=== PATIENT | male | born 1960 | race African-American/Black ===

== ENCOUNTER 2016-08-07 17:43 | Emergency (ER) | payer OTHER ==
[~2016-08-07] VITALS: Ht 170.2 cm; Wt 63.0 kg
[2016-08-07] MEDS ORDERED: IBUPROFEN 600MG TABLET PO STA (18:00)
[2016-08-07 18:42] LABS: BASOPHILS % 0.7 % (0.0-2.0); HEMATOCRIT. 37.3 % (42.0-52.0); HEMOGLOBIN. 12.8 g/dL (14.0-18.0); LYMPHOCYTES % 35.6 % (20.0-50.0); MEAN CORPUSCULAR HEMOGLOBIN 33.9 pg (28.0-32.0); MEAN PLATELET VOLUME 8.5 fl (7.4-10.4); MONOCYTES % 6.3 % (2.0-8.0); NEUTROPHILS % 55.4 % (40.0-76.0); PLATELET 313 x1000/uL (130-400); RED BLOOD CELL COUNT 3.77 mill/uL (4.7-6.1); RED CELL DISTRIBUTION WIDTH 12.9 % (11.6-14.6)
[2016-08-07 18:48] LABS: PROTHROMBIN TIME 10.5 sec
[2016-08-07 18:57] LABS: CARBON DIOXIDE 26 mEq/L (21-32); CHLORIDE 105 mEq/L (98-107); ETHANOL BLOOD 22 mg/dL; TROPONIN I < 0.02 ng/mL (0.00-0.04)
[2016-08-07 20:02] LABS: *AMPHETAMINES SCREEN URINE NEGATIVE (NEGATIVE); *BARBITURATES SCREEN URINE NEGATIVE (NEGATIVE); *BENZODIAZEPINES SCREEN URINE NEGATIVE (NEGATIVE); *COCAINE SCREEN URINE PRESUMTIVE POSITIVE (NEGATIVE); CANNABINOID URINE SCREEN PRESUMTIVE POSITIVE (NEGATIVE); METHADONE URINE SCREEN NEGATIVE (NEGATIVE); OPIATES URINE SCREEN NEGATIVE (NEGATIVE); PHENCYCLIDINE URINE SCREEN NEGATIVE (NEGATIVE)
[2016-08-07 21:30] VITALS: BP 120/79
== END 2016-08-07 22:45 | disposition home or self-care (01) ==
LOC: ER 17:50
DX: R07.89 Other chest pain (principal); F17.210 Nicotine dependence, cigarettes, uncomplicated
CPT/HCPCS: 36415; 71010; 80053; 80305; 84484; 85025; 85610; 93005; 99285; G0482

== ENCOUNTER 2020-12-20 13:55 | Emergency (ER) | payer MEDICAID ==
[~2020-12-20] VITALS: Ht 170.2 cm; Wt 49.0 kg
[2020-12-20 13:56] VITALS: BP 119/79
== END 2020-12-20 14:58 | disposition left against medical advice (07) ==
LOC: ER 13:55
DX: F10.229 Alcohol dependence with intoxication, unspecified (principal); Y90.9 Presence of alcohol in blood, level not specified; I45.19 Other right bundle-branch block
CPT/HCPCS: 93005; 99283

== ENCOUNTER 2021-03-18 12:49 | Emergency (ER) | payer MEDICAID ==
[~2021-03-18] VITALS: Ht 175.3 cm; Wt 70.0 kg
[2021-03-18 16:03] VITALS: BP 100/65
== END 2021-03-18 16:10 | disposition home or self-care (01) ==
LOC: ER 13:07
DX: F10.129 Alcohol abuse with intoxication, unspecified (principal); Y90.9 Presence of alcohol in blood, level not specified
CPT/HCPCS: 82962; 99283

== ENCOUNTER 2021-06-15 15:17 | Emergency (ER) | payer MEDICAID ==
[~2021-06-15] VITALS: Ht 172.7 cm; Wt 69.0 kg
[2021-06-15] MEDS ORDERED: PERM60CR4 TP (20:06)
[2021-06-15 20:27] VITALS: BP 145/86
== END 2021-06-15 20:30 | disposition home or self-care (01) ==
LOC: ER 15:17
DX: R21 Rash and other nonspecific skin eruption (principal)
CPT/HCPCS: 99281

== ENCOUNTER 2023-11-13 18:01 | Emergency (ER) | payer MEDICAID ==
[~2023-11-13] VITALS: Ht 182.9 cm; Wt 77.0 kg
[~2023-11-13 18:01] MED LIST: PERM60CR4 TP
[2023-11-13 18:10] VITALS: O2SAT 98
[2023-11-14 02:10] VITALS: TEMP 37.50300
[2023-11-14 03:43] VITALS: BP 135/98; PULSE 87; RESP 14; O2SAT 100
== END 2023-11-14 03:49 | disposition home or self-care (01) ==
LOC: ER 18:01
DX: F10.129 Alcohol abuse with intoxication, unspecified (principal); I10 Essential (primary) hypertension; Y90.9 Presence of alcohol in blood, level not specified
CPT/HCPCS: 93005; 99285